=== PATIENT | male | born 1955 | race Caucasian/White ===

== ENCOUNTER → 2017-07-24 | Outpatient (CLI) | payer OTHER | END | disposition home or self-care (01) | LOC: KCIC MRI 11:04 | DX: M72.2 Plantar fascial fibromatosis (principal); R60.0 Localized edema | CPT/HCPCS: 73718 ==

== ENCOUNTER → 2021-04-17 | Outpatient (CLI) | payer MEDICARE ==
[~2021-04-17] MED LIST: ALLO100T PO; ATOR10TA60 PO; BUPIVACAINE MPF 0.5% 10 ML VIAL. INT ART ONE; FURO40TA4 PO; GABA300C18 PO; GLIP5TAB10 PO; INSU100I32 SQ; IOHEXOL 300 MG/ML 50 ML VIAL. INT ART ONE; LEVO75TA5 PO; LIDOCAINE 1% Multi-Dose 20 ML VIAL. ID ONE; LOSA100T14 PO; METF10007 PO; OMEP40CA7 PO; SITA100T PO; TRIAMCINOLONE ACETONIDE 40 MG/ML VIAL. INT ART ONE
--- NOTE | 2021-04-17 14:26 | KCIC ---
FLUOROSCOPICALLY GUIDED RIGHT HIP THERAPEUTIC INJECTION 1. INDICATION: The patient is a 66 years old Male who presented with right hip pain. 2. CONSENT: The risks, benefits, treatment options, potential complications and personnel to be invo lved were discussed (including the risks of radiation exposure, instruments to be used, contrast and anesthesia administration) with the patient. All questions were answered and consent was obtained. Th e patient indicated willingness to proceed. 3. GENERAL: a) Medication Reconciliation: The patient's medications and allergies were reviewed in the [facility] medical record and reconciled to the proposed procedure/treatment. Pre-procedure Sign-in: Safety Checklist Performed Yes b) Positioning: The patient was placed Supine on the fluoroscopy table. c) The hip was then sterilely prepped and draped. d) Time Out: A time out was performed immediately prior to procedure start with the nursing, anesthes ia and interventional team, correctly identifying the patient name, date of , procedure, anatomy (including marking of site and side), patient position, procedure consent form, relevant diagnostic and radiology test results, antibiotic administration, safety precautions, and procedure-specific equ ipment needs. Procedure Start Time / Timeout Time: 10:36 e) Anesthesia Type: Local anesthesia: 4 mL 1% Lidocaine 4. PROCEDURE: a) Procedure Details: A 20g spinal needle was inserted into the hip joint. 1 mL Omnipaque 300 was in jected to confirm intra-articular placement of needle. Contrast was observed to flow into the intra-a rticular space of the joint without significant resistance. 3 mL of injectate was administered into t he joint. The needle was removed. Images were stored to the permanent digital archive documenting nee dle position. b) Injectate Contents: 1 mL Triamcinolone Acetonide (Kenalog) 40mg/ml 2 mL 0.5% Bupivacaine (Marcaine,Sensorcaine) c) Estimated Blood Loss: 0 mL RADIATION DOSE: Fluoroscopic Radiation Summary: Fluoroscopy Time: 0:20 min:sec Number of Images: 1 POST PROCEDURE: a) Hemostasis: Hemostasis was achieved using light manual compression. b) Sign-out: Communication Performed Yes c) Procedure End Time: 10:47 d) Conclusion: The patient was discharged from the radiology department in stable condition. COMPLICATIONS: a) Complications during the procedure: None If other, explain: b) Complications following the procedure: Other If other, explain: Immediately following the proced ure, the patient fell attempting to get off of the fluoroscopy table earlier than the technologist estefany light advised and without waiting for the technologist's assistance. The patient sustained a small abrasi on to their leg and struck the back of their head on a cabinet. No bleedingor significant edema or er ythema was noted at either site immediately following the incident. The patient related the fall to t heir right leg feeling weak and that "it just gave out." A brief physical exam revealed mild numbness to the medial right thigh with full sensation throughout the remainder of the right lower extremity and 5/5 strength in the right lower extremity. Radiographs of the right hip and possible trip the the emergency department were advised, but the patient declined and instead decided to wait in the offic e for several hours while local anesthesia wore off. The patient's symptoms gradually improved and archana castano were discharged from the office in stable condition. 5. RESULTS: Medication was injected into the joint. 6. IMPRESSION: SUCCESSFUL FLUOROSCOPICALLY GUIDED THERAPEUTIC INJECTION OF THE RIGHT HIP DESCRIBED AB DON. Electronically signed by: Jakob Madrid DO (04/17/2021 2:24 PM) [id number]
== END | disposition home or self-care (01) ==
LOC: KCIC 09:59
PROVIDERS: ATTEND Orthopaedic Surgery
DX: M25.551 Pain in right hip (principal); Z79.4 Long term (current) use of insulin; Z79.899 Other long term (current) drug therapy
CPT/HCPCS: 20610; 77002; J3301; J3490; Q9967